=== PATIENT | female | born 1990 | race Two or more races ===

== ENCOUNTER 2017-02-10 22:53 | Emergency (ER) | payer OTHER ==
[2017-02-11 01:32] LABS: URINE SOURCE CLEAN CATCH
[2017-02-11 01:36] LABS: BASOPHIL% 0.3 % (0-2.5); DIFF IND NO; EOSINOPHIL% 1.1 % (0.0-7.0); HEMOGLOBIN 12.1 gm/dL (12.0-16.0); LYMPHOCYTE# 1.8 X10e3 (1.0-3.5); LYMPHOCYTE% 39.6 % (17.0-45.0); MEAN CELL VOLUME 86.8 FL (83-96); MEAN CORPUSCULAR HEMOGLOBIN 29.9 PG (28-34); MEAN CORPUSCULAR HGB CONC 34.4 g/dL (30-36); MEAN PLATELET VOLUME 9.1 FL (6.5-11.5); MONOCYTE# 0.4 X10e3 (0-1.0); MONOCYTE% 7.8 % (3.0-12.0); NEUTROPHIL# 2.4 X10e3 (1.5-7.1); NEUTROPHIL% 51.2 % (40-75); PLATELET COUNT 237 X10e3 (140-420); RED BLOOD COUNT 4.03 X10e (3.90-5.30); WHITE BLOOD COUNT 4.6 X10e3 (4.0-10.5)
[2017-02-11 01:39] LABS: URINE APPEARANCE CLEAR; URINE BILIRUBIN NEG (NEG); URINE BLOOD NEG (NEG); URINE COLOR DK YELLOW; URINE GLUCOSE NEG (NEG); URINE KETONE 2+ (NEG); URINE LEUKOCYTE ESTERASE 1+ (NEG); URINE NITRATE NEG (NEG); URINE PROTEIN NEG (NEG); URINE SPECIFIC GRAVITY 1.019 (1.003-1.035); URINE UROBILINOGEN 0.2 MG/DL (NEG)
[2017-02-11 02:08] LABS: ALBUMIN SERUM 4.1 g/dL (3.5-5.0); BILIRUBIN, DIRECT 0.1 mg/dL (0.0-0.2); BILIRUBIN,INDIRECT 0.2 mg/dL (0.0-0.9); BILIRUBIN,TOTAL 0.3 mg/dL (0.2-2.0); BUN/CREATININE RATIO 12.5; CALCIUM SERUM 9.3 mg/dL (8.4-10.2); CREATININE SERUM 0.4 mg/dL (0.6-1.4); GLOM FILT RATE Estimated 145.8 mL/min (>60); POTASSIUM 3.9 mmol/L (3.5-5.1); PROTEIN TOTAL SERUM 7.6 g/dL (6.0-8.3)
[2017-02-11 02:18] LABS: URINE RED BLOOD CELL CAST 0-2 /[HPF]; URINE WHITE BLOOD CELL CAST 0-2 /[HPF]
[2017-02-11 02:19] LABS: CULTURE INDICATED? NO; URINE SQUAMOUS EPITHELIAL CELL MODERATE /[HPF]
== END 2017-02-11 02:37 | disposition left against medical advice (07) ==
LOC: CED 22:53
PROVIDERS: Emergency Medicine
DX: O21.9 Vomiting of pregnancy, unspecified (principal)
CPT/HCPCS: 36415; 80048; 80076; 81003; 83690; 84702; 84703; 85025; 96361; 96374; 96375; 99284; J2765

== ENCOUNTER 2017-02-13 13:39 | Emergency (ER) | payer OTHER ==
[2017-02-13 15:15] LABS: URINE SOURCE CLEAN CATCH
[2017-02-13 15:34] LABS: URINE APPEARANCE CLOUDY; URINE BILIRUBIN NEG (NEG); URINE BLOOD NEG (NEG); URINE COLOR YELLOW; URINE GLUCOSE NEG (NEG); URINE KETONE 1+ (NEG); URINE LEUKOCYTE ESTERASE TRACE (NEG); URINE NITRATE NEG (NEG); URINE PROTEIN NEG (NEG); URINE SPECIFIC GRAVITY 1.015 (1.003-1.035); URINE UROBILINOGEN 0.2 MG/DL (NEG)
[2017-02-13 15:37] LABS: CULTURE INDICATED? YES; URBCS1 AUWI 0-2 /[HPF] (0-2); URINE BACTERIA AUWI 4+ (NEGATIVE); URINE SQUAMOUS EPITHELIAL CELL MOD /[HPF]
== END 2017-02-13 16:05 | disposition home or self-care (01) ==
LOC: CED 13:39 → CFTX 13:39
PROVIDERS: Physician Assistant
DX: N30.00 Acute cystitis without hematuria (principal); R53.1 Weakness
CPT/HCPCS: 81003; 87086; 87088; 87186; 87808; 87905; 96361; 96374; 99284; J2310; J2765